=== PATIENT | male | born 1995 | race Caucasian/White ===

== ENCOUNTER 2019-01-25 20:00 | Emergency (ER) | payer BC ==
[~2019-01-25] VITALS: Ht 180.3 cm; Wt 71.9 kg
[2019-01-25 20:07] VITALS: BP 119/71
[2019-01-25] MEDS ORDERED: KETOROLAC 30 MG/1 ML IM ONE (20:30)
[2019-01-25] MEDS ORDERED: OXYcodone/APAP 5/325MG TABLET PO ONE (20:30)
--- NOTE | 2019-01-25 20:33 | NUR ---
Patient to imaging
[2019-01-25] MEDS ORDERED: KETOROLAC 30 MG/1 ML ONE (20:52)
[2019-01-25] MEDS ORDERED: OXYcodone/APAP 5/325MG TABLET ONE (20:52)
== END 2019-01-25 21:53 | disposition home or self-care (01) ==
LOC: ED 21:47
DX: S39.012A Strain of muscle, fascia and tendon of lower back, initial encounter (principal); S30.0XXA Contusion of lower back and pelvis, initial encounter; G89.11 Acute pain due to trauma; W01.0XXA Fall on same level from slipping, tripping and stumbling without subsequent striking against object, initial encounter; Y93.89 Activity, other specified; Y92.89 Other specified places as the place of occurrence of the external cause; Y99.8 Other external cause status
CPT/HCPCS: 72110; 76700; 96372; 99284; J1885